=== PATIENT | male | born 1960 | race Caucasian/White ===

== ENCOUNTER 2023-07-07 10:30 | Emergency (ER) | payer MEDICARE ==
[~2023-07-07] VITALS: Ht 185.4 cm; Wt 104.8 kg
[2023-07-07 10:38] VITALS: BP 134/91; PULSE 72; TEMP 97.8; O2SAT 97
[2023-07-07] MEDS: morphine 2 MG/ML inj. syringe IV PRN (11:29)
[2023-07-07] MEDS ORDERED: iohexol 300mg/ml 100ml inj. ONE (11:34)
[2023-07-07 11:41] LABS: BASOPHILS # (AUTO) 0.2 X10'3 (0-0.2); EOSINOPHILS # (AUTO) 0.1 X10'3 (0-0.9); EOSINOPHILS % (AUTO) 0.4 % (0-6); HEMATOCRIT 50.7 % (42.0-52.0); HEMOGLOBIN 17.3 g/dl (14.0-17.9); LYMPHOCYTES # (AUTO) 1.9 X10'3 (1.1-4.8); LYMPHOCYTES % (AUTO) 10.3 % (21-51); MEAN CORPUSCULAR HEMOGLOBIN 30.1 PG (27.0-31.0); MEAN CORPUSCULAR HGB CONC 34.1 g/dL (33.0-36.5); MEAN CORPUSCULAR VOLUME 88.1 FL (78-98); MEAN PLATELET VOLUME 9.3 FL (7.4-10.4); MONOCYTES # (AUTO) 1.8 X10'3 (0-0.9); MONOCYTES % (AUTO) 9.6 % (2-12); NEUTROPHILS # (AUTO) 14.5 X10'3 (1.8-7.7); NEUTROPHILS % (AUTO) 78.7 % (42-75); PLATELET COUNT 140 X10'3 (140-440); RED BLOOD COUNT 5.75 X10'6 (4.70-6.10); RED CELL DISTRIBUTION WIDTH 13.5 % (11.5-14.5); WHITE BLOOD COUNT 18.4 X10'3 (4.5-11.0)
[2023-07-07 11:59] LABS: ALANINE AMINOTRANSFERASE 31 U/L (12-78); ALBUMIN 3.8 G/DL (3.4-5.0); ALBUMIN/GLOBULIN RATIO 0.9 (1.1-1.5); ALKALINE PHOSPHATASE 106 IU/L (46-116); ANION GAP 9 (8-16); ASPARTATE AMINO TRANSFERASE 25 U/L (10-37); BILIRUBIN,TOTAL 1.5 MG/DL (0.1-1.0); BLOOD UREA NITROGEN 16 MG/DL (7-18); BUN/CREATININE RATIO 14.5 (10.0-20.0); CHLORIDE 100 MMOL/L (99-107); GLUCOSE 104 MG/DL (70-104); POTASSIUM 3.4 MMOL/L (3.5-5.1); SODIUM 135 MMOL/L (135-145); TOTAL CARBON DIOXIDE 25.6 MMOL/L (24-32); eCRCL 76 ML/MIN; eGFR 67 ML/MIN
[2023-07-07] MEDS: normal saline 1000ml 1,000 ML IV ONE (12:06)
[2023-07-07] MEDS: ondansetron/PF 4mg/2ml inj IV ONE (12:07)
[2023-07-07] MEDS: ampicillin/sulbac 3gm/NS 100ml 100 ML IV ONE (12:08)
[2023-07-07 13:28] VITALS: RESP 18
[2023-07-07] MEDS: normal saline 1000ml 1,000 ML IV SCH (13:28)
[2023-07-07] MEDS: morphine 4 MG/ML inj SYRINge IV ONE (13:28)
== END 2023-07-07 14:50 | disposition hospice, inpatient (51) ==
LOC: ER 10:31
DX: L02.01 Cutaneous abscess of face (principal); I10 Essential (primary) hypertension
CPT/HCPCS: 36415; 70487; 80053; 83605; 84145; 85025; 86140; 87040; 96361; 96365; 96375; 96376; 99285; J0295; J2270; J2405; J3490; J7030; Q9967